=== PATIENT | male | born 1955 | race African-American/Black ===

== ENCOUNTER 2017-09-02 15:54 | Emergency (ER) | payer MEDICAID ==
[~2017-09-02] VITALS: Ht 170.2 cm; Wt 96.0 kg
[2017-09-02 16:43] LABS: CHLORIDE 105 mEq/L (98-107)
[2017-09-02 16:45] LABS: HEMATOCRIT. 36.6 % (42.0-52.0); HEMOGLOBIN. 12.2 g/dL (14.0-18.0); MEAN CORPUSCULAR HEMOGLOBIN 30.9 pg (28.0-32.0); MEAN CORPUSCULAR VOLUME 92.5 fL (80.0-94.0); MEAN PLATELET VOLUME 7.8 fl (7.4-10.4); PLATELET 299 x1000/uL (130-400); RED BLOOD CELL COUNT 3.96 mill/uL (4.7-6.1); RED CELL DISTRIBUTION WIDTH 13.3 % (11.6-14.6)
[2017-09-02 16:47] LABS: ETHANOL BLOOD 15 mg/dL
[2017-09-02 16:49] LABS: PHOSPHORUS 4.7 mg/dL (2.5-4.9)
[2017-09-02 17:48] LABS: ATYPICAL LYMPHOCYTES 2; PLATELET ESTIMATE NORMAL
[2017-09-02 20:00] VITALS: BP 128/69
== END 2017-09-02 19:31 | disposition home or self-care (01) ==
LOC: ER 16:44
DX: R55 Syncope and collapse (principal); I10 Essential (primary) hypertension; I95.9 Hypotension, unspecified
CPT/HCPCS: 36415; 71045; 80053; 83735; 84100; 84484; 85025; 93005; 99285; G0482